=== PATIENT | female | born 1960 ===

== ENCOUNTER → 2020-09-08 | Outpatient (CLI) | payer SELFPAY ==
[~2020-09-08] MED LIST: COVID-19 VACCINE (PFIZER)/PF 30 MCG/0.3 ML VIAL IM ONE; EPINEPHRINE INJ/PF 1 MG/1 ML AMPULE IM PRN
--- OUTSIDE RECORDS SUMMARY | 2020-09-11 10:31 | XMS REPORT ---
:1960 [facility] [address] [place] [address] Care Team Providers Name Role Phone NICOLE SOLORZANO Primary Care Physician Unavailable VIK SEQUEIRA Attending Clinician Unavailable Elsie SOLORZANO Attending Clinician Unavailable UNKNOWN Attending Clinician Unavailable Jovanna HOOKS Attending Clinician Unavailable Kyle STEEN Attending Clinician Unavailable Fern STOLL Attending Clinician Unavailable Allergies, Adverse Reactions, Alerts Allergy Name Allergy Status Severity Reaction(s) Onset Inactive Treat ing Comments Type Date Date Clinician Azithromycin Propensity Active Moderate Hives to adverse reactions to drug Azithromycin Allergy to Active Rash substance Medications Ordered Filled Start Stop Current Ordering Indication Dosage Frequency Signature Comments Components Medication Medication Date Date Medication? Clinician (SIG) Name Name urea Yes APPLY TO (CEROVEL) 6-05 THICKENED 40 % 00:00: AREAS ON topical 00 FEET AT cream BEDTIME irbesartan Yes 75mg QD Take 75 mg (AVAPRO) 75 5-24 by mouth MG tablet 00:00: once 00 daily. Cephalexin 2016- No 500 Four Times (Keflex*) 6-27 12-07 Daily 500 Mg 00:01: 00:00 CAPSULE 00 :00 *calcium Yes oral 2-15 00:00: 00 aspirin 81 Yes 1{tbl} QD 1 tab by mg tablet 2-15 mouth 00:00: daily 00 *ergocalcif Yes plus mike oral 7-20 calcium 00:00: 00 multivitami Yes n-Ca-iron-m 7-20 inerals 00:00: 18-0.4 mg 00 Tab vitamin E Yes 1{capsu QD 1 cap by 800 UNIT 7-20 le} mouth capsule 00:00: daily 00 acetaminoph Yes Q1H Take by en/diphenhy mouth as dramine needed (TYLENOL PM ORAL) diphenhydra Yes Take by mine HCl mouth (ALLERGY MEDICATION ORAL) gadobenate No 17mL 17 mL, dimeglumine Intravenou (MULTIHANCE s, Once, ) injection Yolanda 17 mL 04/12/20 at 1800, For 1 dose, Radiology Aspirin Yes 81 Once Per (Ecotrin*) Day 81 Mg TABEC Cholecalcif Yes Once Per mike Day (Vitamin D3) 2,000 Unit TABLET Irbesartan Yes 150 Every (Avapro*) Morning 150 Mg TABLET Multivitami Yes 1 Once Per n (Multi Day Vitamin Daily) 1 Each TABLET Vitamin E Yes 400 Once Per (Vitamin E Day Cap*) 400 Unit CAP alprazolam No alprazolam 0.5 mg 0.5 mg tablet Take tablet 1 tablet Take 1 every 6-8 tablet hours by every 6-8 oral route hours by as needed. oral route as needed. aspirin 81 No 1 Q1D aspirin 81 mg mg tablet,gary tablet,del yed release ayed Take 1 release tablet Take 1 every day tablet by oral every day route. by oral route. irbesartan No irbesartan 75 mg 75 mg tablet TAKE tablet 1 TABLET BY TAKE 1 MOUTH EVERY TABLET BY DAY MOUTH EVERY DAY Vitamin D3 No 1 Q1D Vitamin D3 25 mcg 25 mcg (1,000 (1,000 unit) unit) tablet Take tablet 1 tablet Take 1 every day tablet by oral every day route. by oral route. vitamin E No 1capsul Q1D vitamin E 400 unit e(s) 400 unit capsule capsule Take 1 Take 1 capsule capsule every day every day by oral by oral route. route. trazodone No trazodone 50 mg 50 mg tablet TAKE tablet 1 TO 2 TAKE 1 TO TABLETS BY 2 TABLETS MOUTH EVERY BY MOUTH DAY AT EVERY DAY BEDTIME FOR AT BEDTIME SLEEP FOR SLEEP NEEDED NEEDED vitamin E No 1capsul Q1D vitamin E 400 unit e(s) 400 unit capsule capsule Take 1 Take 1 capsule capsule every day every day by oral by oral route. route. Vitamin E 2016- No Once Per 07-23 Day 00:00 :00 Calcium/Vit 2017- No Once Per cordova D 07-23 Day (Calcium 00:00 600 + Vit D :00 400 Tablet) 600 Mg TAB Irbesartan 2017- No 150 Once Per (Avapro*) 07-23 Day 150 Mg 00:00 TABLET :00 Multivitami 2017- No Once Per n 07-23 Day (Multivitam 00:00 ins) :00 Problems Condition Condition Condition Status Onset Resolution Last Treatin g Comments Name Details Category Date Date Treatment Clinician Date H/O H/O [id number] Active 2018-03-04 bilateral bilateral 19 14:05:05 mastectomy mastectomy 00:00: 00 Angioedema Angioedema Problem Active of lips of Lips 03-03 00:00: 00 Essential Essential Problem Active hypertensio Hypertensio 9-18 n n 00:00: 00 BRCA1 BRCA1 [id number] Active 2014-01-22 positive positive 08 21:57:33 00:00: 00 Breast Breast 97046502 Active 1999-082016-02-07 cancer, cancer, 0-16 19:56:08 left left 00:00: breast, breast, 00 ER-,PA+, ER-,PA+, HER2 HER2 negative negative 2001 2001 Malignant Malignant Problem Active tumor of Tumor of 1- breast Breast 00:00: 00 Procedures Procedure Date / Time Performed Performing Clinician Devic e MAMMO DIAGNOSTIC DIGITAL LEFT 2020-04-30 09:59:56 Destiny Sequeira MAMMO US BREAST BIOPSY LT W CLIP 2020-04-30 09:59:56 Alicia Seqeuira SPECIMEN IMAGE MAMMO US BREAST BIOPSY LT W CLIP 2020-04-20 13:44:35 Alicia Sequeira SPECIMEN IMAGE MAMMO DIAGNOSTIC BREAST WITH 2020-04-20 08:45:44 Destiny Sequeira TOMOSYNTHESIS LEFT MAMMO US BREAST LIMITED LEFT 2020-04-20 08:45:44 Destiny Sequeira nn MRI BREAST BILATERAL WITH AND 2020-04-12 18:17:35 Destiny Sequeira WITHOUT CONTRAST Breast Surgery 2015-05-17 00:00:00 Colonoscopy 2014-07-03 00:00:00 Hysterectomy 2001-04-17 00:00:00 Results Test Description Test Time Test Comments Text Results Atomic Results Result Comments Mammo diagnostic digital 2020-04-30 10:22:42 Biopsy ma rking clip is left appropriately positioned at the biopsy site of the left shahriar st mass at 6 o'clock. The exam was electronically reviewed by a staff physician. Assessment: Post Procedure Mammograms for Azul De La RosaEXAM:MAMMO DIAGNOST IC DIGITAL LEFT 04/30/2020 9:0 0 AM INDICATION:Post Procedure Ma mmogram COMPARISON:Compared to: 04/17 Mammo US breast biopsy LT w clip and specimen image, 04/20/20 Mammo diagnostic breast tomosynthesis left, 04/20/20 20 Mammo US breast biopsy LT w clip and specimen image, 04/20/20 20 Mammo US breast limited left , and 04/12/2020 MRI breast bilate ral with and without contrast FINDINGS:Post biopsy mammogr am confirms the presence of a b iopsy marking clip at the site of biopsy in the left breast at 6 o'cl ock. Mammo US breast biopsy LT 2020-04-30 10:22:33 Tracey ccessful ultrasound-guided biopsy w clip and specimen image of the mass in the Left breast at 6 o'clock. Waiting for patholo gy results. A final report will be issued when these become elisa ilable. The attending provider was p resent for the entire procedure.EXA M:MAMMO US BREAST BIOPSY LT W CLIP S PECIMEN IMAGE 04/30/2020 9:00 AM INDICATION:Left breast suspi cious finding. Biopsy recommended. PATIENT CONSENT: Risks and b enefits of the procedure were explai you to the patient. Written consent was obtained and a time-out proc edure was performed. COMPARISON:Co mpared to: 04/20/[address] limited left, 04/20/2020 Saul mo diagnostic breast tomosynthe sis left, 04/20/2020 Mammo US br east biopsy LT w clip and specime n image, 04/12/2020 MRI breast bilateral with and without contrast, and 01/14/2001 MAMMOGRAPHY(DIAG) BILATERAL TECHNIQUE:An ultrasound-guid ed biopsy using real-time ultra sound was performed for the suspic ious mass in the Left breast at 6 o'clock. This was described on the previous mammogram and ultra sound report(s). The skin was prep ped in the usual manner. Local anes thetic was [facility]. The mass was approache d from the medial aspect. Multiple cores were obtained with a Suros A CAMPOS vacuum assisted biopsy needl e. A cylinder clip was inserted i nto the biopsy cavity. A skin adhesi ve and a sterile dressing were appl ied to the access site. Post-proced ure mammogram demonstrates the c lip in appropriate position. The sp ecimens were sent to the laboratory for pathological analysis. There were no significant post-procedur e complications. Mammo US breast biopsy LT 2020-04-20 14:59:02 Tracey ccessful ultrasound-guided biopsy w clip and specimen image of the mass in the Left breast. Waiting for pathology result s. A final report will be issued when these become available. The attending provider was prese nt for the entire procedure.EXAM:MA MMO US BREAST BIOPSY LT W CLIP SPEC IMEN IMAGE 04/20/2020 1:30 PM INDICATION:Left breast suspi cious finding. Biopsy recommended. PATIENT CONSENT: Risks and b enefits of the procedure were explai you to the patient. Written consent was obtained and a time-out proc edure was performed. COMPARISON:No comparisons were made when r eading this study. TECHNIQUE:An ultrasound-guided biopsy usi ng real-time ultrasound was per formed for the suspicious mass in t he Left breast at 6 o'clock. This wa s described on the previous ma mmogram and ultrasound report(s). Th e skin was prepped in the usual man ner. Local anesthetic was adminis tered to the access site. A skin n ick was made in the breast. The mass was approached from the medial a spect. Multiple cores were obtained with a 14 gauge biopsy needle. A he art clip was inserted into the b iopsy cavity. A skin adhesive and a sterile dressing were applie d to the access site. Post-proced ure mammogram and ultrasound demonstrates the clip in appropriate position. The sp ecimens were sent to the laboratory for pathological analysis. There were no significant post-procedur e complications. Mammo US breast biopsy LT 2020-04-20 14:59:02 Tracey ccessful ultrasound-guided biopsy w clip and specimen image of the mass in the Left breast. Waiting for pathology result s. A final report will be issued when these become available. The attending provider was prese nt for the entire procedure.EXAM:MA MMO US BREAST BIOPSY LT W CLIP SPEC IMEN IMAGE 04/20/2020 1:30 PM INDICATION:Left breast suspi cious finding. Biopsy recommended. PATIENT CONSENT: Risks and b enefits of the procedure were explai you to the patient. Written consent was obtained and a time-out proc edure was performed. COMPARISON:No comparisons were made when r eading this study. TECHNIQUE:An ultrasound-guided biopsy usi ng real-time ultrasound was per formed for the suspicious mass in t he Left breast at 6 o'clock. This wa s described on the previous ma mmogram and ultrasound report(s). Th e skin was prepped in the usual man ner. Local anesthetic was adminis tered to the access site. A skin n ick was made in the breast. The mass was approached from the medial a spect. Multiple cores were obtained with a 14 gauge biopsy needle. A he art clip was inserted into the b iopsy cavity. A skin adhesive and a sterile dressing were applie d to the access site. Post-proced ure mammogram and ultrasound demonstrates the clip in appropriate position. The sp ecimens were sent to the laboratory for pathological analysis. There were no significant post-procedur e complications. Mammo diagnostic breast tomosynthesis left 2020-04-20 10:05:40 Test Item Value Reference Range Comments IMP (test code = IMP) TORY (test code = TORY) Lab Interpretation (test code = 22182-4) Abnormal Mammo US breast limited [id number] 10:05:39 Test Item Value Reference Range Comments IMP (test code = IMP) TORY (test code = TORY) Lab Interpretation (test code = 93768-3) Abnormal MRI breast bilateral with and without [id number] 06:46:29LeftLeft breast 6 mm enahncing mass at the 6 o'clock position. Findings suggest a benign processsuch as a fibroadenoma or possibly fat necrosis. Diagnostic mammogram and second look ultrasound is recommended to further characterize. If not visible on other imaging modalities, six month follow-up MRI is recommended. RECOMMENDATION:Diagnostic Mammogram and Ultrasound of the LEFT breast to further evaluate probably benign mass. If unable to visualize on Mammogram/US, recommend MRI in 6 months.BI-RADS: 3 - Probably BenignEXAM:MRI BREAST BILATERAL WITH AND WITHOUT CONTRAST 04/12/2020 6:00 PM INDICATION:Invasive breast cancer, stage I/II/III, follow upincrease scar tissue; no skin changes, BRCA 1+ History of medullary left breast cancer, ER negative, PA positiveScreening MRI COMPARISON:No comparisons were made when reading this study. TECHNIQUE:A dedicated breast coil was used. Axial T1 andT2 weighted sequence images were obtained of both breasts. Axial T1 weighted 3D images with fat suppression were obtained both before and after the IV administration of intravenous contrast injected alexandre rate of 2 mL per second. This study was acquired both before and after the IV administration of gadolinium contrast material. Given the patient's indications for the examination, IV contrast was administered to improve disease detection and further define anatomy. FINDINGS:There is minimal background parenchymal enhancement. Bilateral silicone implants are present.This study was not protocolled to evaluate implant integrity. In the left breast there is a 6 mm x 6 mm round, enhancing mass in the lower central region of the left breast at 6 o'clock just anterior to the breast implant (series 6, image 170). This mass is hyperintense on T2 weighted images. There are no other suspicious masses or suspicious areas of enhancement in either breast. There is no axillary adenopathy.[id number] 18:07:[address] [address] [id number] ------ Patient: ARIK TELLES : 1960 Sex: F Address: [address] [place] [address] [place] [address] Unit #: [id number] REQ SEQ #: [id number] Location: IMAGE Room #: Ordering: MARGARET HOOKS MD Diagnosis: LOW BACK PAIN -- LUMBAR SPINE 5 VIEWSClinical Information: LOW BACK PAIN Comparison: None Bones appear mildly osteopenic. There is no evidence for fracture or subluxation. Minimal lumbar dextroscoliosis with apex of curvature at L4. Mild multilevel anterior osteophytic lipping. Mild disc space narrowing at L4-5 and L5-S1 consistent with degenerative disc changes. There is evidence for mild lower lumbar facet arthropathy. The SI joints are patent. Multiple surgical clips are seen in the pelvis. There are small calcific densities consistent with incidental phleboliths. Impression: Evidence for mild lower lumbar degenerative changes. Final report electronically signed by: Elina Botello DO Signed by: ALONSO BOTELLO DO 05/28/17 [id number] cc: MARGARET HOOKS MD, WILLIAM C [id number] 15:15:[address] [id number] ------ Patient: ARIK TELLES : 1960 Sex: F Address: [address] [place] [address] [place] [address] [id number] #: [id number] [facility] SEQ #: [id number] Location: IMAGE Room #: Ordering: JASVIR RODRIGUEZ Diagnosis: L SIDED CHEST WALL PAIN CHEST 2 VIEWS PA AND LATERAL Clinical Information: L SIDED CHEST WALL PAIN The soft tissues and bony structures are unremarkable. The heart, mediastinum and pulmonary vasculature are normal. There is no evidence of focal consolidation, pleural effusion or mass. Impression: No evidence of acute cardiopulmonary disease. Final report electronically signed by: Jian Nelson MD Signed by: JIAN NELSON MD 12/04/16 [id number] cc: JIAN NELSON MD, DAVID S PA Assessments Condition Name Status Diagnosis Date Treating Clinici an Administration of influenza vaccine Active 2020-06-12 0 8:54:40 Essential hypertension Active 2020-01-31 09:21:56 Malignant tumor of breast Active 2020-01-31 09:22:00 Insomnia Active 2020-01-31 09:31:13 Lesion of lip Active 2019-07-12 16:46:37 Onychomycosis of toenails Active 2019-03-21 15:06:16 Malignant tumor of breast Active 2018-11-30 09:43:02 Essential hypertension Active 2018-11-30 09:43:04 Family history of coronary Active 2018-11-30 10:00:26 arteriosclerosis Insomnia Active 2018-11-30 10:12:34 Influenza vaccination Active 2018-06-28 10:54:06 BRCA1 positive Unknown H/O bilateral mastectomy Unknown Mass of breast, left Unknown Abnormal breast biopsy Unknown Mass of breast, left Unknown Abnormal breast biopsy Unknown Malignant neoplasm of overlapping Unknown sites of left breast in female, estrogen receptor positive (CMS-HCC) BRCA1 positive Unknown H/O bilateral mastectomy Unknown Malignant neoplasm of overlapping Unknown sites of left breast in female, estrogen receptor positive (CMS-HCC) BRCA1 positive Unknown H/O bilateral mastectomy Unknown Malignant neoplasm of overlapping Unknown sites of left breast in female, estrogen receptor positive (CMS-HCC) Malignant neoplasm of overlapping Unknown sites of left breast in female, estrogen receptor positive (CMS-HCC) BRCA1 positive Unknown H/O bilateral mastectomy Unknown Malignant neoplasm of overlapping Unknown sites of left breast in female, estrogen receptor positive (CMS-HCC) BRCA1 positive Unknown H/O bilateral mastectomy Unknown Malignant neoplasm of overlapping Unknown sites of left breast in female, estrogen receptor positive (CMS-HCC) Encounters Start End Encounter Admission Attending Care Care Encounter Date/Time Date/Time Type Type Clinicians Facility Department ID 2020-06-12 2020-06-12 Kalin Houston [id number] 00:00:00 00:00:00 CLAU Fitzgerald: Medical Medical [address] [address] [facility], [place] [address], Ph. 2020-05-14 2020-05-[address] [facility] [id number] 00:00:00 00:00:00 2020-04-30 2020-04-[address] [facility] [id number] 08:27:30 23:59:00 2020-04-25 2020-04-[address] [facility] [id number] 00:00:00 00:00:00 2020-04-20 2020-04-[address] [facility] [id number] 12:39:26 23:59:00 2020-04-20 2020-04-[address] [facility] [id number] 07:43:04 07:43:04 2020-04-20 2020-04-20 Outpatient [facility] [id number] 00:00:00 00:00:00 2020-04-20 2020-04-20 Outpatient [facility] [id number] 00:00:00 00:00:00 2020-04-15 2020-04-15 Outpatient [facility] [id number] 00:00:00 00:00:00 2020-04-12 2020-04-12 Outpatient [facility] [id number] 17:12:45 17:12:45 2020-04-12 2020-04-12 Outpatient [facility] [id number] 00:00:00 00:00:00 2020-04-05 2020-04-05 Outpatient DEERICKALER, [facility] DU [id number] 11:04:09 11:04:09 DESTINY 2020-04-04 2020-04-04 Outpatient [facility] [id number] 00:00:00 00:00:00 2020-01-31 2020-01-31 Outpatient SALVADOR SOLORZANO [facility] [id number] 13:03:00 13:03:00 NICOLE 66 2020-01-31 2020-01-31 Nicole [place] [id number] 00:00:00 00:00:00 MD Rashad: Medical Medical [address] [place] [address], [facility], [facility] [place] [address], Ph. 2019-07-12 2019-07-12 Nicole Gene [place] [id number] 00:00:00 00:00:00 MD Rashad: Medical Medical [id number] [facility], [facility], [facility] [place] [address], Ph. 2019-03-21 2019-03-21 Nicole Gene [place] [id number] 00:00:00 00:00:00 MD Rashad: Medical Medical [id number] [facility], [facility], [facility] [place] [address], Ph. 2018-11-30 2018-11-30 Outpatient SALVADOR SOLORZANO [facility] [id number] 11:42:00 11:42:00 NICOLE 36 2018-11-30 2018-11-30 Nicole Colont [id number] 00:00:00 00:00:00 MD Rashad: Medical Medical [address] [address] [facility], [facility], [place] [address], Ph. 2018-06-28 2018-06-28 Lucia Colont [id number] 00:00:00 00:00:00 Kvng, Medical Medical [address] MD: [facility] [place] [address], Ph. 2018-06-11 2018-06-11 Outpatient EL ESPERANZA [facility] [id number] 14:18:00 14:18:00 74 2017-11-25 2017-11-25 Outpatient SALVADOR HOOKS, [facility] [id number] 08:04:00 08:04:00 MARGARET 34 2017-07-28 2017-07-28 Outpatient EL ENIO, [facility] [id number] 01:15:00 01:15:00 ALEX 38 2017-05-28 2017-05-28 Outpatient SALVAODR HOOKS, [facility] [id number] 15:29:00 15:29:00 MARGARET 11 2016-12-04 2016-12-04 Outpatient EL JERMAN, [facility] [id number] 14:09:00 14:09:00 JASVIR 46 2016-11-13 2016-11-13 Outpatient EL NEVA, [facility] [id number] 10:38:00 10:38:00 MARGARET 84 Immunizations Ordered Immunization Filled Immunization Date Status Commen ts Refusal Reason Name Name Influenza, 2020-06-12 Completed injectable, MDCK, 09:02:15 preservative free, quadrivalent Influenza, 2018-06-28 Completed injectable, MDCK, 10:54:25 preservative free, quadrivalent Influenza, IM 2018-06-17 Completed unspecified 00:00:00 Influenza, IM 2017-05-12 Completed unspecified 00:00:00 influenza, 2017-05-12 Completed injectable, 00:00:00 quadrivalent Tdap 2015-11-20 Completed 00:00:00 zoster, unspecified 2013-05-17 Completed formulation 00:00:00 Payers Payer Name Policy Type Policy Number Effective Date Expiration D ate Plan of Treatment Planned Activity Planned Date Details Comments Future Scheduled Test [code = ] Future Scheduled Test [code = ] Future Scheduled Test [code = ] Future Scheduled Test [code = ] Future Scheduled Test [code = ] Future Scheduled Test [code = ] Future Scheduled Test [code = ] Future Scheduled Test [code = ] Future Scheduled Test [code = ] Future Scheduled Test [code = ] Future Scheduled Test [code = ] Future Scheduled Test [code = ] Future Scheduled Test [code = ] Future Scheduled Test [code = ] Future Scheduled Test [code = ] Future Scheduled Test [code = ] Future Scheduled Test [code = ] Future Scheduled Test [code = ] Future Appointment 2021-04-11 11:45:00 Destiny Sequeira [employer], [address] [place] [address] [address] Future Appointment 2021-01-31 09:30:00 Nicole Solorzano, [address] [place] [address]; [place] [address] Social History Social Habit Start Date Stop Date Comments No 2017-07-23 13:47:00 Y - GLASS OF WINE ON WEEKENDS 2017-07-23 13:47:00 Exposure to SARS-CoV-2 (event) Tobacco use and exposure 2020-04-20 00:00:00 2020-04-20 00:00:00 Alcohol intake 2020-04-20 00:00:00 2020-04-20 00:00:00 Alcohol Comment 2014-01-16 00:00:00 2014-01-16 00:00:00 Smoking Status Start Date Stop Date Never smoker Never smoker 2020-04-20 00:00:00 Social History Observation Description Sex Female Vital Signs Vital Name Observation Time Observation Value Comments Systolic blood pressure 2020-04-05 12:20:00 145 mm[Hg] Diastolic blood pressure 2020-04-05 12:20:00 84 mm[Hg] Heart rate 2020-04-05 12:20:00 92 /min Body temperature 2020-04-05 12:20:00 36.61 Tracy Respiratory rate 2020-04-05 12:20:00 16 /min Body height 2020-04-05 12:20:00 174 cm Body weight 2020-04-05 12:20:00 83.6 kg BMI 2020-04-05 12:20:00 27.62 kg/m2 Oxygen saturation in Arterial blood by 2020-04-05 12:20:00 100 % Pulse oximetry BP Systolic 2020-01-31 00:00:00 168 mm[Hg] Body Weight 2020-01-31 00:00:00 181 [lb_av] BP Diastolic 2020-01-31 00:00:00 96 mm[Hg] Height 2020-01-31 00:00:00 68.5 [in_i] BMI (Body Mass Index) 2020-01-31 00:00:00 27.1 kg/m2 BP Diastolic 2019-07-12 00:00:00 95 mm[Hg] Height 2019-07-12 00:00:00 68.5 [in_i] BMI (Body Mass Index) 2019-07-12 00:00:00 28.1 kg/m2 BP Systolic 2019-07-12 00:00:00 149 mm[Hg] Body Weight 2019-07-12 00:00:00 187.3 [lb_av] BP Diastolic 2019-03-21 00:00:00 95 mm[Hg] Height 2019-03-21 00:00:00 68.5 [in_i] BMI (Body Mass Index) 2019-03-21 00:00:00 28.1 kg/m2 BP Systolic 2019-03-21 00:00:00 149 mm[Hg] Body Weight 2019-03-21 00:00:00 187.4 [lb_av] Height 2018-11-30 00:00:00 68.5 [in_i] BMI (Body Mass Index) 2018-11-30 00:00:00 27.5 kg/m2 Body Weight 2018-11-30 00:00:00 183.4 [lb_av] WEIGHT 2017-07-28 08:45:00 77.27 kg HEIGHT 2017-07-28 08:45:00 173.093568 cm WEIGHT 2017-07-28 01:15:00 77.27 kg HEIGHT 2017-07-28 01:15:00 173.117253 cm Hospital Discharge Instructions 1. Administration of influenza vaccine Flucelvax Quad (PF) 60 mcg (15 mcg x 4)/0.5 mL IM syringe Discussion Note: None recorded. Patient educational handouts: No information available.Patient Instructions Ruma Bledsoe CMA - 04/05/2020 11:45 AM EDT [facility] Triage Line Contact Information The [facility] Triage Line is available Thursday - Thursday from 8 am - 5 pm at . There is always someone you can reach after 6 pm, on the weekend or during holidays. If you call the [employer] Machine Operator at , he or she will ask you for your provider's name and your name. They will then contact your provider or the covering provider who can then discuss your concerns with you. For emergencies, please call 911 or report to the closest Emergency Department. Clinical Notes on My Chart Progress notes documented by your healthcare team will now be available onthe my chart portal. We believe that patients should be a part of the healthcare team. We encourage y ou to review notes after visits and in preparation for upcoming appointments. This provides the opportunity to review recommendations as well as to prepare questions for your healthcare team to addressduring your next visit. If you identify discrepancies in the documentation or have specific questions related to the notes, please bring them to your next scheduled visit to discuss with your physician, nurse practitioner, or physician judicial administrative assistant. With increased transparency, our hope is that we createmore trust, better communication, more shared decision-making, and increased satisfaction. Please beaware that these notes will not be discussed over the phone or through My Chart messages. They will be discussed only at your next office visit with your provider. documented in this encounter1. Essential hypertension CBC w/ diff CMP, serum or plasma lipid panel, serum irbesartan 75 mg tablet 2. Malignant tumor of breast 3. Insomnia Discussion Note: None recorded. Patient educational handouts: No information available.1. Lesion of lip dermatology referral Discussion Note: None recorded. Patient educational handouts: No information available.1. Onychomycosis of toenails Discussion Note: None recorded. Patient educational handouts: No information available.1. Malignant tumor of breast 2. Essential hypertension CBC w/ diff CMP, serum or plasma lipid panel, serum 3. Family history of coronary arteriosclerosis cardiology referral - She is BRA CA1 + s/p b/l mastectomies for breast cancer and SUNSHINE 4. Insomnia Discussion Note: None recorded. Patient educational handouts: No information available.1. Influenza vaccination Flucelvax Quad [id number] (PF) 60 mcg (15 mcg x 4)/0.5 mL IM syringe Discussion Note: None recorded. Patient educational handouts: No information available.
== END ==
LOC: EMPHEALTH 15:45
PROVIDERS: ATTEND Internal Medicine
DX: Z23 Encounter for immunization (principal)
CPT/HCPCS: 91300